=== PATIENT | female | born 1975 | race African-American/Black ===

== ENCOUNTER 2017-04-22 18:35 | Observation (INO) | payer OTHER ==
[~2017-04-22 18:35] MED LIST: CYCL7.5T33 PO; GABA100C4 PO; MECL-62 PO; MEDR4PAK PO
[2017-04-22 18:37] VITALS: BP 181/95; PULSE 96; RESP 16; TEMP 98.8; O2SAT 100
[2017-04-22 19:01] VITALS: BP 205/106; PULSE 97; RESP 16
[2017-04-22 19:04] VITALS: O2SAT 99
--- NOTE | 2017-04-22 19:05 | PD ---
HPI Chief Complaint: Neuro Symptoms/ Deficits Time Seen by Provider: 18:55 Travel History International Travel<30 days: No Contact w/Intl Traveler<30days: No Traveled to known affect area: No History of Present Illness HPI 42-year-old female sent in by [facility] for CVA workup. Patient has no significant past medical history and is not on any medications. She reports left-sided tingling/ numbness in her arm and leg. She denies weakness. She states that about a month ago she had a mechanical slip and fall and landed onto her left shoulder and since that time she has been having tingling sensation in her left arm and hand. She was started on prednisone by her primary care physician and states that it kept her up at night. She discontinue this medication about a week ago. Over the weekend she had episodes of stuttered speech and has continued numbness in her left arm and leg. She also reports feeling off balance. No chest pain or dyspnea. No fevers or chills. No visual disturbances. PFSH Past Medical History Anemia: Yes Cancer: No Cardiovascular Problems: No Diabetes: No Diminished Hearing: No Endocrine: No Gastrointestinal Disorders: No Genitourinary: No Hepatitis: No Hiatal Hernia: No Hypertension: Yes Immune Disorder: No Musculoskeletal: Yes (MUSCLE SPASMS) Neurologic: No Psychiatric: No Reproductive: Yes (TL) Respiratory: No Immunizations Current: Yes Migraines: Yes Thyroid Disease: No : 5 Para: 4 Miscarriage: 1 : 0 Past Surgical History Abdominal Surgery: No Cardiac Surgery: No Ear Surgery: No Endocrine Surgery: No Eye Surgery: No Genitourinary Surgery: No Gynecologic Surgery: Yes (CERVICAL BIOPSY, TL) Neurologic Surgery: No Oral Surgery: No Pacemaker: No Thoracic Surgery: No Social History Alcohol Use: No Tobacco Use: No Substance Use: No Allergies-Medications (Allergen,Severity, Reaction): Coded Allergies: *MDRO Multi-Drug Resistant Organism (Verified Adverse Reaction, Unknown, 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) - 03/05/06, 03/08/11, 03/20/11 Reported Meds & Prescriptions Reported Meds & Active Scripts Active Flexeril (Cyclobenzaprine HCl) 7.5 Mg Tab 7.5 Mg PO TID Meclizine (Meclizine HCl) 25 Mg Tab 25 Mg PO TID PRN Gabapentin 100 Mg Cap 100 Mg PO HS Medrol Dosepak (Methylprednisolone) 4 Mg Dspk 4 Mg PO DIRECTED Per Pharmacist direction Review of Systems Except as stated in HPI: all other systems reviewed are Neg Physical Exam Narrative GENERAL: Well-developed, well-nourished, comfortable, no apparent distress. SKIN: Focused skin assessment warm/dry. HEAD: Atraumatic. Normocephalic. EYES: Pupils equal and round. No scleral icterus. No injection or drainage. ENT: Mucous membranes pink and moist. NECK: Trachea midline. No JVD. CARDIOVASCULAR: Regular rate and rhythm. RESPIRATORY: No accessory muscle use. Clear to auscultation. Breath sounds equal bilaterally. GASTROINTESTINAL: Abdomen soft, non-tender, nondistended. Hepatic and splenic margins not palpable. MUSCULOSKELETAL: No obvious deformities. No clubbing. No cyanosis. No edema. NEUROLOGICAL: Awake and alert. No obvious cranial nerve deficits. Motor grossly within normal limits. Normal speech. No focal deficits. Normal strength in all 4 extremities. No pronator drift. PSYCHIATRIC: Appropriate mood and affect; insight and judgment normal. Data Data Last Documented VS Vital Signs Date Time Temp Pulse Resp B/P (MAP) Pulse Ox O2 Delivery O2 Flow Rate FiO2 04/22/17 20:44 90 16 158/74 (102) 100 Room Air 04/22/17 18:37 98.8 Orders Orders Electrocardiogram (04/22/17 19:01) Prothrombin Time / Inr (Pt) (04/22/17 19:01) Act Partial Throm Time (Ptt) (04/22/17 19:01) Complete Blood Count With Diff (04/22/17 19:) Comprehensive Metabolic Panel (04/22/17 19:01) Creatine Kinase (Cpk) (04/22/17 19:01) Troponin I (04/22/17 19:01) Urinalysis - C+S If Indicated (04/22/17 19:01) Ct Brain W/O Iv Contrast(Rout) (04/22/17 19:) Chest, Single Ap (04/22/17 19:01) Ecg Monitoring (04/22/17 19:01) Iv Access Insert/Monitor (04/22/17 19:) Oximetry (04/22/17 19:01) Sodium Chloride 0.9% Flush (Ns Flush) (04/22/17 19:15) Beta Hcg (Quant/Titer) (04/22/17 19:01) Ct Cerv Spine W/O Contrast (04/22/17 ) Aspirin Ec (Ecotrin Ec) (04/22/17 20:30) Urine Culture (04/22/17 19:35) Labs Laboratory Tests Test 04/22/17 19:30 04/22/17 19:35 White Blood Count 11.4 TH/MM3 Red Blood Count 3.89 MIL/MM3 Hemoglobin 11.0 GM/DL Hematocrit 33.2 % Mean Corpuscular Volume 85.2 FL Mean Corpuscular Hemoglobin 28.3 PG Mean Corpuscular Hemoglobin Concent 33.2 % Red Cell Distribution Width 15.9 % Platelet Count 383 TH/MM3 Mean Platelet Volume 7.7 FL Neutrophils (%) (Auto) 65.9 % Lymphocytes (%) (Auto) 25.8 % Monocytes (%) (Auto) 5.8 % Eosinophils (%) (Auto) 1.8 % Basophils (%) (Auto) 0.7 % Neutrophils # (Auto) 7.5 TH/MM3 Lymphocytes # (Auto) 2.9 TH/MM3 Monocytes # (Auto) 0.7 TH/MM3 Eosinophils # (Auto) 0.2 TH/MM3 Basophils # (Auto) 0.1 TH/MM3 CBC Comment DIFF FINAL Differential Comment Prothrombin Time 9.7 SEC Prothromb Time International Ratio 1.0 RATIO Activated Partial Thromboplast Time 24.3 SEC Blood Urea Nitrogen 12 MG/DL Creatinine 0.74 MG/DL Random Glucose 87 MG/DL Total Protein 8.4 GM/DL Albumin 3.4 GM/DL Calcium Level 8.5 MG/DL Alkaline Phosphatase 75 U/L Aspartate Amino Transf (AST/SGOT) 21 U/L Alanine Aminotransferase (ALT/SGPT) 20 U/L Total Bilirubin 0.2 MG/DL Sodium Level 139 MEQ/L Potassium Level 4.0 MEQ/L Chloride Level 106 MEQ/L Carbon Dioxide Level 27.0 MEQ/L Anion Gap 6 MEQ/L Estimat Glomerular Filtration Rate 104 ML/MIN Total Creatine Kinase 102 U/L Troponin I LESS THAN 0.02 NG/ML Human Chorionic Gonadotropin, Quant LESS THAN 1 MIU/ML Urine Color YELLOW Urine Turbidity CLEAR Urine pH 6.5 Urine Specific [place] 1.024 Urine Protein TRACE mg/dL Urine Glucose (UA) NEG mg/dL Urine Ketones NEG mg/dL Urine Occult Blood LARGE Urine Nitrite NEG Urine Bilirubin NEG Urine Urobilinogen LESS THAN 2.0 MG/DL Urine Leukocyte Esterase SMALL Urine RBC /hpf Urine WBC 13 /hpf Urine Squamous Epithelial Cells 3 /hpf Urine Amorphous Sediment RARE Urine Mucus FEW /lpf Microscopic Urinalysis Comment CATH-CULTURE IND MDM Medical Decision Making Medical Screen Exam Complete: Yes Emergency Medical Condition: Yes Interpretation(s) EKG: Sinus, rate 89, normal axis, normal intervals, minimal voltage for LVH, no acute ischemic abnormality Differential Diagnosis CVA, intracranial trauma, radiculopathy, metabolic abnormality, UTI Narrative Course Vital signs show heart rate 90, blood pressure 150/74, pulse ox 100% on room air , oral temp of 98.8F. CBC is unremarkable. CMP is unremarkable. Cardiac enzymes are negative. Beta hCG is negative. UA shows hematuria. The patient is currently on her menstrual period. CT head: No acute disease. CT cervical spine: CONCLUSION: 1. Reversal of the normal cervical lordosis. 2. No acute fracture or prevertebral soft tissue swelling. 3. No bony spinal canal stenosis. Chest x-ray: No acute disease. Patient was made aware of all findings. She was given a dose of aspirin. She is resting comfortably. She continues to complain of tingling sensation in her left arm and leg. There is no weakness on exam. No pronator drift. No visual changes. Patient will be admitted for further CVA workup. Case discussed with medical coding technician Dr. Mercedes. The patient will be admitted to their service under Dr. Cabrera Diagnosis Primary Impression: Neurological complaint Additional Impression: Paresthesias Admitting Information Admitting Physician Requests: Observation Denny Hall MD Apr 22, 2017 19:05
[2017-04-22] MEDS ORDERED: SODIUM CHLORIDE 0.9% FLUSH 10 ML FLUSH IVF PRN (19:15)
--- NOTE | 2017-04-22 19:30 | RADRPT ---
EXAM DATE/TIME: 04/22/2017 19:24 [facility] COMPARISON: CT BRAIN W/O CONTRAST, October 16, 2015, 1:04. INDICATIONS : Left upper and lower extremity weakness. RADIATION DOSE: 53.65 CTDIvol (mGy) MEDICAL HISTORY : Hypertension. SURGICAL HISTORY : None. ENCOUNTER: Initial ACUITY: 1 day PAIN SCALE: 0/10 LOCATION: Bilateral head TECHNIQUE: Multiple contiguous axial images were obtained of the head. Using automated exposure control and adj ustment of the mA and/or kV according to patient size, radiation dose was kept as low as reasonably a chievable to obtain optimal diagnostic quality images. DICOM format image data is available electro nically for review and comparison. FINDINGS: CEREBRUM: The ventricles are normal for age. No evidence of midline shift, mass lesion, hemorrhage or acute in farction. No extra-axial fluid collections are seen. POSTERIOR FOSSA: The cerebellum and brainstem are intact. The 4th ventricle is midline. The cerebellopontine angle i s unremarkable. EXTRACRANIAL: The visualized portion of the orbits is intact. SKULL: The calvaria is intact. No evidence of skull fracture. CONCLUSION: No acute disease. Timmy Grady MD on April 22, 2017 at 19:27 Board Certified Radiologist. This report was verified electronically.
--- NOTE | 2017-04-22 19:33 | RADRPT ---
EXAM DATE/TIME: 04/22/2017 19:16 [facility] COMPARISON: No previous studies available for comparison. INDICATIONS : Syncope. MEDICAL HISTORY : Hypertension. SURGICAL HISTORY : None. ENCOUNTER: Initial ACUITY: 1 day PAIN SCORE: 0/10 LOCATION: Bilateral chest FINDINGS: A single view of the chest demonstrates the lungs to be symmetrically aerated without evidence of mas s, infiltrate or effusion. The cardiomediastinal contours are unremarkable. Osseous structures are intact. CONCLUSION: No acute disease. Timmy Grady MD on April 22, 2017 at 19:30 Board Certified Radiologist. This report was verified electronically.
--- NOTE | 2017-04-22 19:52 | RADRPT ---
EXAM DATE/TIME: 04/22/2017 19:24 [facility] COMPARISON: No previous studies available for comparison. INDICATIONS : Left upper and lower extremity weakness. RADIATION DOSE: 46.00 CTDIvol (mGy) MEDICAL HISTORY : Hypertension. SURGICAL HISTORY : None. ENCOUNTER: Initial ACUITY: 1 day PAIN SCALE: 0/10 LOCATION: Bilateral neck TECHNIQUE: Volumetric scanning of the cervical spine was performed. Multiplanar reconstructions in the sagittal, coronal and oblique axial planes were performed. Using automated exposure control and adjustment o f the mA and/or kV according to patient size, radiation dose was kept as low as reasonably achievable to obtain optimal diagnostic quality images. DICOM format image data is available electronically f or review and comparison. FINDINGS: VERTEBRAE: Normal vertebral body height. ALIGNMENT: There is reversal of the normal cervical lordosis. No evidence of subluxation. C2-C3: The bony spinal canal is normal in size. No evidence of disc bulge or herniation. The neural forami na are bilaterally patent. C3-C4: The bony spinal canal is normal in size. No evidence of disc bulge or herniation. The neural forami na are bilaterally patent. C4-C5: The bony spinal canal is normal in size. No evidence of disc bulge or herniation. The neural forami na are bilaterally patent. C5-C6: The bony spinal canal is normal in size. No evidence of disc bulge or herniation. The neural forami na are bilaterally patent. C6-C7: The bony spinal canal is normal in size. No evidence of disc bulge or herniation. The neural forami na are bilaterally patent. C7-T1: The bony spinal canal is normal in size. No evidence of disc bulge or herniation. The neural forami na are bilaterally patent. CONCLUSION: 1. Reversal of the normal cervical lordosis. 2. No acute fracture or prevertebral soft tissue swelling. 3. No bony spinal canal stenosis. Timmy Grady MD on April 22, 2017 at 19:47 Board Certified Radiologist. This report was verified electronically.
[2017-04-22 20:20] LABS: AUTOMATED NEUTROPHIL # 7.5 TH/MM3 (1.8-7.7); BASOPHIL # 0.1 TH/MM3 (0-0.2); BASOPHIL % 0.7 % (0.0-2.0); EOSINOPHIL # 0.2 TH/MM3 (0-0.4); EOSINOPHIL % 1.8 % (0.0-4.0); HEMATOCRIT 33.2 % (35.0-46.0); HEMO FLAGS DIFF FINAL; LYMPH % 25.8 % (9.0-44.0); LYMPHOCYTE # 2.9 TH/MM3 (1.0-4.8); MEAN CELL VOLUME 85.2 FL (80.0-100.0); MEAN CORPUSCULAR HEMOGLOBIN 28.3 PG (27.0-34.0); MEAN CORPUSCULAR HGB CONC 33.2 % (32.0-36.0); MONO % 5.8 % (0.0-8.0); NEUT % 65.9 % (16.0-70.0); PLATELET COUNT 383 TH/MM3 (150-450); RED BLOOD COUNT 3.89 MIL/MM3 (4.00-5.30); RED CELL DISTRIBUTION WIDTH 15.9 % (11.6-17.2); WHITE BLOOD COUNT 11.4 TH/MM3 (4.0-11.0)
[2017-04-22 20:23] LABS: BLOOD, URINE LARGE (NEG); GLUCOSE,URINE NEG (NEG); KETONE, URINE NEG (NEG); MUCUS URINE FEW /lpf (OCC); NITRITE,URINE NEG (NEG); PH, URINE 6.5 (5.0-8.5); SQUAMOUS EPITHELIAL CELL URINE 3 /hpf (0-5); URINE COLOR YELLOW (YELLW/STRAW)
[2017-04-22 20:29] LABS: COMMENT (UR) CATH-CULTURE IND; CULTURE IF INDICATED CATH CULTURE IND
[2017-04-22] MEDS ORDERED: ASPIRIN EC 325 MG TABEC PO ONE (20:30)
[2017-04-22 20:35] LABS: APTT (PATIENT) 24.3 SEC (24.3-30.1); PROTHROMBIN TIME - PATIENT 9.7 SEC (9.8-11.6)
[2017-04-22 20:44] VITALS: BP 158/74; PULSE 90; RESP 16; O2SAT 100
[2017-04-22 20:50] LABS: ALT (GPT) 20 U/L (10-53)
[2017-04-22 20:55] LABS: ALKALINE PHOSPHATASE 75 U/L (45-117); ANION GAP 6 MEQ/L (5-15); AST (GOT) 21 U/L (15-37); BETA HCG QUANT LESS THAN 1 MIU/ML (0-5); BLOOD UREA NITROGEN 12 MG/DL (7-18); CHLORIDE 106 MEQ/L (98-107); CREATINE KINASE 102 U/L (26-192); GLOMERULAR FILTRATION RATE 104 ML/MIN (>89); SODIUM (NA) 139 MEQ/L (136-145); TOTAL BILIRUBIN ADULT 0.2 MG/DL (0.2-1.0)
[2017-04-22] MEDS ORDERED: IOHEXOL 350 MG/ML 10 ML VIAL (for RAD DIAG) IVCONTRAST ONE (21:14)
--- NOTE | 2017-04-22 21:45 | HHI.HP ---
[facility] Service Family Medicine Primary Care Physician Cris Kent , R3 MD Gigi Admission Diagnosis left arm and leg paresthesias Diagnoses: International Travel<30 Days: No Contact w/Intl Traveler<30days: No Known Affected Area: No History of Present Illness Mrs. Otto is a 42 y/o F presenting to the ED for L sided paresthesia and pain. Patient states that approximately one month ago she fell onto her left shoulder while trying to catch her balance. She states that initially her left index finger started having paresthesia has now progressed to all 4 fingers except for her fifth digit chronically. Currently she is experiencing paresthesia throughout the entire left side of her body. She was given an unknown anti-inflammatory that "worked pretty good" over , however it made her "jittery" and was therefore losing sleep. She self discontinued the medication. Over the last weekend she started to feel unbalanced while walking and noticed a slight stutter when talking. She was seen at the [facility] acute care clinic today and was discharged home on a "couple of medications." However, she was unable to obtain these medications from pharmacy and was called by her physician to come immediately to the ED for evaluation. She describes the paresthesia as pins and needles throughout the entire left side of her body that is accompanied with intermittent "lightning/electricity strikes" that started at the left side of her head and shoot all the way down to her left foot. Otherwise she has no complaints and denies any headaches, blurry vision, shortness of breath, chest pain, NVD, abdominal pain, or calf tenderness. Review of Systems Constitutional: COMPLAINS OF: Dizziness, DENIES: Fever, Chills Endocrine: DENIES: Abnorml menstrual pattern Eyes: DENIES: Blurred vision Ears, nose, mouth, throat: COMPLAINS OF: Tinnitus (Baseline ), DENIES: Throat pain Respiratory: DENIES: Cough, Shortness of breath Cardiovascular: DENIES: Chest pain, Syncope Gastrointestinal: COMPLAINS OF: Nausea (After ibuprofen today on empty stomach ), DENIES: Abdominal pain, Diarrhea, Vomiting Genitourinary: DENIES: Hematuria, Dysuria Musculoskeletal: COMPLAINS OF: Muscle aches, DENIES: Joint pain, Back pain Integumentary: DENIES: Rash Hematologic/lymphatic: DENIES: Lymphadenopathy Neurologic: DENIES: Headache Psychiatric: DENIES: Mood changes Past Family Social History Past Medical History Past Medical History Chronic migraines Muscle spasms Abnormal uterine bleeding (EMB January 2015 negative for malignancy) Hypertension [employer] History (1 miscarriage) x 4 Age at menstruation: 12 History of abnormal paps and HR-HPV Past Surgical History Surgical History Tubal ligation Endometrial biopsy (January 2015) Lipoma removal from back Allergies: Coded Allergies: *MDRO Multi-Drug Resistant Organism (Verified Adverse Reaction, Unknown, 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) - 03/05/06, 03/08/11, 03/20/11 Family History Family History Mother: alive, HTN Father: alive, HTN, HLD, HIRAM Maternal grandmother: in 40s from breast cancer All women on maternal side had hysterectomy Brother: alive, HTN, HIRAM Children are healthy (22, 20, 8, 4 as of January 2015) Social History Social History Lives with two of four children Works in [employer] at [employer] EtOH: occasional (once every 2-3 months), no history of abuse Tobacco: recently started back smoking 2 black and milds per day, prior smoked about 5 cigars daily x 10 years Illicit drugs: Smokes marijuana daily, 1 blunt per day, otherwise no reported history Health Maintenance Pap: February 2014, ASCUS with HR-HPV --> colpo was negative; January 2015 ASCUS and +HR-HPV, January 2015 ECC and EMB negative for malignancy Flu shots: January 2015 Lipids: June [address] Montano (rheumatology) Physical Exam Vital Signs Vital Signs Date Time Temp Pulse Resp B/P (MAP) Pulse Ox O2 Delivery O2 Flow Rate FiO2 04/22/17 20:44 90 16 158/74 (102) 100 Room Air 04/22/17 19:04 99 Room Air 04/22/17 19:01 97 16 205/106 (139) 04/22/17 18:58 16 04/22/17 18:37 98.8 96 16 181/95 (123) 100 Room Air Physical Exam GENERAL: Well-nourished, well-developed female patient lying on bed in no acute distress. SKIN: Warm and dry. No rash. HEENT: Atraumatic, normocephalic with EOMI. PERRLA. No rhinorrhea. Oropharynx clear. No LAD, JVD, or thyroid abnormality appreciated. CARDIOVASCULAR: Regular rate and rhythm without obvious murmurs, gallops, or rubs. 2+ pulses in all 4 extremities. RESPIRATORY: Clear to auscultation bilaterally with no CRW. No increased work of breathing. GASTROINTESTINAL: Abdomen soft, nontender with positive bowel sounds. No hepatosplenomegaly appreciated. MUSCULOSKELETAL: No cyanosis or edema. Strength grossly WNL. BACK: Nontender without obvious deformity. No CVA tenderness. NEURO/PSYCH: Afocal. Awake, alert, and oriented x3. Cranial nerves II through X intact. Extremities reflexes 2+ throughout 4 extremities. Gross strength and sensation intact without deficits and all 4 extremities. Patient tender to palpation along any part of her left side of the body. Normal speech and judgment. Laboratory Laboratory Tests Test 04/22/17 19:30 04/22/17 19:35 White Blood Count 11.4 Red Blood Count 3.89 Hemoglobin 11.0 Hematocrit 33.2 Mean Corpuscular Volume 85.2 Mean Corpuscular Hemoglobin 28.3 Mean Corpuscular Hemoglobin Concent 33.2 Red Cell Distribution Width 15.9 Platelet Count 383 Mean Platelet Volume 7.7 Neutrophils (%) (Auto) 65.9 Lymphocytes (%) (Auto) 25.8 Monocytes (%) (Auto) 5.8 Eosinophils (%) (Auto) 1.8 Basophils (%) (Auto) 0.7 Neutrophils # (Auto) 7.5 Lymphocytes # (Auto) 2.9 Monocytes # (Auto) 0.7 Eosinophils # (Auto) 0.2 Basophils # (Auto) 0.1 CBC Comment DIFF FINAL Differential Comment Prothrombin Time 9.7 Prothromb Time International Ratio 1.0 Activated Partial Thromboplast Time 24.3 Blood Urea Nitrogen 12 Creatinine 0.74 Random Glucose 87 Total Protein 8.4 Albumin 3.4 Calcium Level 8.5 Alkaline Phosphatase 75 Aspartate Amino Transf (AST/SGOT) 21 Alanine Aminotransferase (ALT/SGPT) 20 Total Bilirubin 0.2 Sodium Level 139 Potassium Level 4.0 Chloride Level 106 Carbon Dioxide Level 27.0 Anion Gap 6 Estimat Glomerular Filtration Rate 104 Total Creatine Kinase 102 Troponin I LESS THAN 0.02 Human Chorionic Gonadotropin, Quant LESS THAN 1 Urine Color YELLOW Urine Turbidity CLEAR Urine pH 6.5 Urine Specific [place] 1.024 Urine Protein TRACE Urine Glucose (UA) NEG Urine Ketones NEG Urine Occult Blood LARGE Urine Nitrite NEG Urine Bilirubin NEG Urine Urobilinogen LESS THAN 2.0 Urine Leukocyte Esterase SMALL Urine RBC Urine WBC 13 Urine Squamous Epithelial Cells 3 Urine Amorphous Sediment RARE Urine Mucus FEW Microscopic Urinalysis Comment CATH-CULTURE IND Date/Time Source Procedure Growth Status 04/22/17 19:35 Urine Catheterized Urine Urine Culture Pending Received Result Diagram: 04/22/17192904/22/171929 [place]ini VTE Risk Assessment Caprini VTE Risk Assessment: Mod/High Risk (score >= 2) Caprini Risk Assessment Model Point Value = 1 Point Value = 2 Point Value = 3 Point Value = 5 Age 41-60 Minor surgery BMI > 25 kg/m2 Swollen legs Varicose veins or History of unexplained or recurrent spontaneous Oral contraceptives or hormone replacement Sepsis (< 1 month) Serious lung disease, including pneumonia (< 1 month) Abnormal pulmonary function Acute myocardial infarction Congestive heart failure (< 1 month) History of inflammatory bowel disease Medical patient at bed rest Age 61-74 Arthroscopic surgery Major open surgery (> 45 min) Laparoscopic surgery (> 45 min) Malignancy Confined to bed (> 72 hours) Immobilizing plaster cast Central venous access Age >= 75 History of VTE Family history of VTE Factor V Leiden Prothrombin [id number] Lupus anticoagulant Anticardiolipin antibodies Elevated serum homocysteine Heparin-induced thrombocytopenia Other congenital or acquired thrombophilia Stroke (< 1 month) Elective arthroplasty Hip, pelvis, or leg fracture Acute spinal cord injury (< 1 month) Prophylaxis Regimen Total Risk Factor Score Risk Level Prophylaxis Regimen 0-1 Low Early ambulation 2 Moderate Order ONE of the following: *Sequential Compression Device (SCD) *Heparin 5000 units SQ BID 3-4 Higher Order ONE of the following medications: *Heparin 5000 units SQ TID *Enoxaparin/Lovenox 40 mg SQ daily (WT < 150 kg, CrCl > 30 mL/min) *Enoxaparin/Lovenox 30 mg SQ daily (WT < 150 kg, CrCl > 10-29 mL/min) *Enoxaparin/Lovenox 30 mg SQ BID (WT < 150 kg, CrCl > 30 mL/min) AND/OR *Sequential Compression Device (SCD) 5 or more Highest Order ONE of the following medications: *Heparin 5000 units SQ TID (Preferred with Epidurals) *Enoxaparin/Lovenox 40 mg SQ daily (WT < 150 kg, CrCl > 30 mL/min) *Enoxaparin/Lovenox 30 mg SQ daily (WT < 150 kg, CrCl > 10-29 mL/min) *Enoxaparin/Lovenox 30 mg SQ BID (WT < 150 kg, CrCl > 30 mL/min) AND *Sequential Compression Device (SCD) Assessment and Plan Assessment and Plan Mrs. Otto is a 42 y/o F presenting to the ED for L sided paresthesia and pain admitted for evaluation of possible TIA Code Status Full code Discussed Condition With Dr. Hall Problem List: (1) TIA (transient ischemic attack) ICD Codes: G45.9 - Transient cerebral ischemic attack, unspecified Status: Acute Plan: Patient admitted to rule out TIA versus CVA Imaging/studies/orders: -Head CT: No acute disease -Cervical spine CT: Reversal of the normal cervical lordosis. No acute fracture or prevertebral soft tissue swelling. No bony spinal canal stenosis. -Carotid ultrasounds ordered -Head MRI and MRA ordered -Cervical spine MRI ordered -Echocardiogram ordered -NIH stroke scale protocol ordered -OT/PT consulted -Neurology consulted, appreciate recommendations Medications: -Aspirin daily -Continue gabapentin 100 mg nightly -Continue Flexeril 3 times a day for muscle spasms (2) Nutrition, metabolism, and development symptoms ICD Codes: R63.8 - Other symptoms and signs concerning food and fluid intake Status: Acute Plan: Diet: Nothing by mouth until swallow evaluation Fluids: Normal saline at 70 mL per hour Electrolytes: Within normal limits (3) Medical contraindication to deep vein thrombosis (DVT) prophylaxis ICD Codes: Z53.09 - Procedure and treatment not carried out because of other contraindication Status: Acute Plan: Medical DVT prophylaxis held until acute process ruled out SCD/TEDs Forest Mecredes MD R2 Apr 22, 2017 21:45
[2017-04-22] MEDS ORDERED: SODIUM CHLORIDE 0.9% FLUSH 10 ML FLUSH IV FLUSH PRN (22:15)
[2017-04-22] MEDS ORDERED: GLUCAGON 1 MG/ML VIAL OTHER PRN (22:15)
[2017-04-22] MEDS ORDERED: DEXTROSE 50% IN WATER 50 ML VIAL(D50) IV PUSH PRN (22:15)
[2017-04-22 22:30] VITALS: O2SAT 100
[2017-04-22] MEDS: SODIUM CHLOR 0.9% 1000 ML INJ 1,000 ML IV SCH (22:38)
[2017-04-22 23:58] VITALS: BP 167/74; PULSE 86; RESP 16; O2SAT 98
[2017-04-23] VITALS (11 sets, daily range): BP systolic 125–160; BP diastolic 67–86; PULSE 72–98; RESP 16–21; TEMP 97.8–98.7; O2SAT 98–100
--- NOTE | 2017-04-23 00:02 | RADRPT ---
EXAM DATE/TIME: 04/22/2017 23:19 [facility] COMPARISON: No previous studies available for comparison. INDICATIONS : Cerebrovascular accident. Left upper and lower extremity weakness. MEDICAL HISTORY : . Hypertension. Migraines. SURGICAL HISTORY : Tubal ligation. Cervical biopsy. ENCOUNTER: Initial ACUITY: 1 day PAIN SCORE: 0/10 LOCATION: Bilateral neck PEAK SYSTOLIC VELOCITIES (cm/sec): ICA/CCA RATIO: Right: 0.7 Left: 1.1 ICA: Right: 92 Left: 122 CCA: Right: 128 Left: 112 ECA: Right: 84 Left: 153 VERTEBRAL: Right: 56 antegrade Left: 74 antegrade Elevated flow velocities and ICA/CCA ratios have been found to correlate with increased degrees of vessel stenosis, calculated as percentage of diameter relative to a normal segment of distal ICA/CCA FINDINGS: RIGHT CAROTID: There is an apparent small dissection in the proximal to mid right common carotid artery. There is apparent normal color flow. LEFT CAROTID: No significant stenosis is visualized. The waveforms are within normal limits. VERTEBRAL ARTERIES: Antegrade flow is seen in both vertebral arteries. MISCELLANEOUS: None. CONCLUSION: Apparent small dissection in the mid right common carotid artery. Color flow was unre markable. There is no evidence of stenosis or elevated velocities. Darion Loving MD on April 22, 2017 at 23:56 Board Certified Radiologist. This report was verified electronically.
[2017-04-23 05:42] LABS: AUTOMATED NEUTROPHIL # 4.7 TH/MM3 (1.8-7.7); BASOPHIL # 0.1 TH/MM3 (0-0.2); BASOPHIL % 1.1 % (0.0-2.0); EOSINOPHIL # 0.2 TH/MM3 (0-0.4); EOSINOPHIL % 2.4 % (0.0-4.0); HEMATOCRIT 29.6 % (35.0-46.0); HEMO FLAGS DIFF FINAL; LYMPHOCYTE # 2.7 TH/MM3 (1.0-4.8); MEAN CELL VOLUME 84.6 FL (80.0-100.0); MEAN CORPUSCULAR HEMOGLOBIN 28.1 PG (27.0-34.0); MEAN CORPUSCULAR HGB CONC 33.2 % (32.0-36.0); MONO % 7.3 % (0.0-8.0); NEUT % 57.2 % (16.0-70.0); PLATELET COUNT 319 TH/MM3 (150-450); RED CELL DISTRIBUTION WIDTH 15.7 % (11.6-17.2); WHITE BLOOD COUNT 8.3 TH/MM3 (4.0-11.0)
[2017-04-23 05:45] LABS: PROTHROMBIN TIME - PATIENT 9.8 SEC (9.8-11.6)
[2017-04-23 06:04] LABS: ANION GAP 6 MEQ/L (5-15); BICARBONATE 25.3 MEQ/L (21.0-32.0); BLOOD UREA NITROGEN 9 MG/DL (7-18); CHLORIDE 110 MEQ/L (98-107); GLOMERULAR FILTRATION RATE 150 ML/MIN (>89); POTASSIUM 4.2 MEQ/L (3.5-5.1); SODIUM (NA) 141 MEQ/L (136-145)
[2017-04-23 06:08] LABS: HDL CHOLESTEROL 46.5 MG/DL (40.0-60.0); LDL CHOLESTEROL 115 MG/DL (0-99)
[2017-04-23] MEDS ORDERED: PILL SPLITTER OTHER PRN (07:30)
[2017-04-23] MEDS: INSULIN ASPART SUPPLEMENTAL SCALE SQ SCH ×4 (08:00→21:00)
[2017-04-23] MEDS: SODIUM CHLORIDE 0.9% FLUSH 10 ML FLUSH IV FLUSH SCH ×2 (09:00→21:00)
[2017-04-23] MEDS: ASPIRIN 81 MG CHEW TAB PO SCH (09:15)
[2017-04-23] MEDS: CYCLOBENZAPRINE HCL 10 MG TAB PO SCH ×3 (09:15→17:03)
--- NOTE | 2017-04-23 09:22 | HHI.FPPN ---
Subjective Remarks Patient seen and examined this morning. Temperature 98.4, pulse 76, respiratory rate 16, blood pressure 125/81, pulse ox 100% on room air. She is just returned from the MRI were MRI of the brain and spine and MRA were performed, results are still pending. Her carotid ultrasound showed a right carotid dissection and vascular surgery has been consulted. Explained the result of the ultrasound and that we are awaiting recommendations. Neurology has also been consulted and recommendations are pending. She understands the current plan of care, and has no complaints at this time. She reports that she is still feeling the tingling in her left hand, and if she tries to get out of the bed and feels like she is stumbling to the right. (Garcia Harrington MD, R3) Objective Vitals Vital Signs Date Time Temp Pulse Resp B/P (MAP) Pulse Ox O2 Delivery O2 Flow Rate FiO2 04/23/17 04:15 77 04/23/17 03:08 98.4 76 16 125/81 (96) 100 04/23/17 02:30 83 04/23/17 01:24 04/23/17 00:39 79 16 143/67 (92) 04/22/17 23:58 86 16 167/74 (105) 98 Room Air 04/22/17 22:30 100 04/22/17 20:44 90 16 158/74 (102) 100 Room Air 04/22/17 19:04 99 Room Air 04/22/17 19:01 97 16 205/106 (139) 04/22/17 18:58 16 04/22/17 18:37 98.8 96 16 181/95 (123) 100 Room Air (Garcia Harrington MD, R3) Result Diagram: 04/23/179 04/23/179 Imaging Last Impressions Head CT 04/22/171900 Signed Impressions: Service Date/Time: Saturday, April 22, 2017 19:24 - CONCLUSION: No acute disease. Timmy Grady MD Chest X-Ray 04/22/171900 Signed Impressions: Service Date/Time: Saturday, April 22, 2017 19:16 - CONCLUSION: No acute disease. Timmy Grady MD Cervical Spine CT 04/22/17 0000 Signed Impressions: Service Date/Time: Saturday, April 22, 2017 19:24 - CONCLUSION: 1. Reversal of the normal cervical lordosis. 2. No acute fracture or prevertebral soft tissue swelling. 3. No bony spinal canal stenosis. Timmy Grady MD Carotid Artery Ultrasound 04/22/17 0000 Signed Impressions: Service Date/Time: Saturday, April 22, 2017 23:19 - CONCLUSION: Apparent small dissection in the mid right common carotid artery. Color flow was unremarkable. There is no evidence of stenosis or elevated velocities. Darion Loving MD Objective Remarks GENERAL: Well-nourished, well-developed female patient lying on bed in no acute distress. SKIN: Warm and dry. No rash. HEENT: Atraumatic, normocephalic with EOMI. PERRLA. No rhinorrhea. Oropharynx clear. No LAD, JVD, or thyroid abnormality appreciated. CARDIOVASCULAR: Regular rate and rhythm without obvious murmurs, gallops, or rubs. 2+ pulses in all 4 extremities. RESPIRATORY: Clear to auscultation bilaterally with no CRW. No increased work of breathing. GASTROINTESTINAL: Abdomen soft, nontender with positive bowel sounds. No hepatosplenomegaly appreciated. MUSCULOSKELETAL: No cyanosis or edema. Strength grossly WNL. BACK: Nontender without obvious deformity. No CVA tenderness. NEURO/PSYCH: Afocal. Awake, alert, and oriented x3. Cranial nerves II through X intact. Extremities reflexes 2+ throughout 4 extremities. Gross strength and sensation intact without deficits and all 4 extremities. Patient tender to palpation along any part of her left side of the body. Normal speech and judgment. Medications and IVs Current Medications Medications (Trade) Dose Ordered Sig/Jairo Route Start Time Stop Time Status Last Admin (NS Flush) 2 ml BID IV FLUSH 04/23/17 09:00 (NS Flush) 2 ml UNSCH PRN IV FLUSH 04/22/17 22:15 Sodium Chloride 1,000 ml @ 70 mls/hr [id number] IV 04/22/17 22:08 04/22/17 22:38 (Aspirin Chew) 81 mg DAILY PO 04/23/17 09:00 (NovoLOG SUPPLEMENTAL SCALE) 1 ACHS SQ 04/23/17 08:00 (D50w (Vial) Inj) 50 ml UNSCH PRN IV PUSH 04/22/17 22:15 (Glucagon Inj) 1 mg UNSCH PRN OTHER 04/22/17 22:15 (Neurontin) 100 mg HS PO 04/23/17 21:00 (Flexeril) 7.5 mg TID PO 04/23/17 09:00 (Pill Splitter) 1 ea UNSCH PRN OTHER 04/23/17 07:30 (Garcia Harrington MD, R3) A/P Assessment and Plan Mrs. Otto is a 42 y/o F presenting to the ED for L sided paresthesia and pain admitted for evaluation of possible TIA Discharge Planning Pending recommendations by neurology and vascular surgery, discharged plans uncertain at this time (Garcia Harrington MD, R3) Attending Attestation Patient seen and examined. Case reviewed and discussed with the resident team. Agree with plan of care as discussed with me and documented in the resident note. she was comfortable in bed. fortunately she has had no CVA. appreciate help of Neurology and Neurosurgery. (Cassie Garza MD) Problem List: (1) TIA (transient ischemic attack) ICD Codes: G45.9 - Transient cerebral ischemic attack, unspecified Status: Acute Plan: Patient admitted to rule out TIA versus CVA Imaging/studies/orders: -Head CT: No acute disease -Cervical spine CT: Reversal of the normal cervical lordosis. No acute fracture or prevertebral soft tissue swelling. No bony spinal canal stenosis. -Carotid ultrasounds: Right carotid dissection -Head MRI and MRA ordered -Cervical spine MRI ordered -Echocardiogram ordered -NIH stroke scale protocol ordered -OT/PT consulted -Neurology consulted, appreciate recommendations Medications: -Aspirin daily -Continue gabapentin 100 mg nightly -Continue Flexeril 3 times a day for muscle spasms (2) Carotid artery dissection ICD Codes: I77.71 - Dissection of carotid artery Status: Resolved Plan: With TIA workup carotid ultrasound showed a small dissection in the mid right common carotid artery. Currently patient is hemodynamically stable * Vascular surgery consulted, recommendations appreciated (3) Nutrition, metabolism, and development symptoms ICD Codes: R63.8 - Other symptoms and signs concerning food and fluid intake Status: Acute Plan: Diet: Nothing by mouth until swallow evaluation Fluids: Normal saline at 70 mL per hour Electrolytes: Within normal limits (4) Medical contraindication to deep vein thrombosis (DVT) prophylaxis ICD Codes: Z53.09 - Procedure and treatment not carried out because of other contraindication Status: Acute Plan: Medical DVT prophylaxis held until acute process ruled out SCD/TEDs (Garcia Harrington MD, R3) Garcia Harrington MD, R3 Apr 23, 2017 09:22 Cassie Garza MD Apr 25, 2017 12:25
--- NOTE | 2017-04-23 09:45 | RADRPT ---
EXAM DATE/TIME: 04/23/2017 08:13 [facility] COMPARISON: No previous studies available for comparison. INDICATIONS : Radiculopathy. Left sided weakness. MEDICAL HISTORY : Hypertension. SURGICAL HISTORY : Tubal ligation. ENCOUNTER: Initial ACUITY: 2 day PAIN SCORE: 0/10 LOCATION: neck TECHNIQUE: Multiplanar, multisequence MRI examination of the cervical spine was performed. FINDINGS: VERTEBRAE: Normal vertebral body height. Homogeneous marrow signal. ALIGNMENT: No evidence of subluxation. CORD: Normal configuration and signal. POST FOSSA: The cerebellar tonsils are normal in position. C2-C3: The thecal sac has a normal configuration. There is no evidence of disc herniation or spinal canal s tenosis. The neural foramina are patent bilaterally. C3-C4: The thecal sac has a normal configuration. There is no evidence of disc herniation or spinal canal s tenosis. The neural foramina are patent bilaterally. C4-C5: The thecal sac has a normal configuration. There is no evidence of disc herniation or spinal canal s tenosis. The neural foramina are patent bilaterally. C5-C6: A moderate sized central disc true lesion abutting and effacing the anterior surface of the spinal co rd is noted. Neuroforamina are patent without significant encroachment. C6-C7: The thecal sac has a normal configuration. There is no evidence of disc herniation or spinal canal s tenosis. The neural foramina are patent bilaterally. C7-T1: The thecal sac has a normal configuration. There is no evidence of disc herniation or spinal canal s tenosis. The neural foramina are patent bilaterally. CONCLUSION: 1. Moderate-sized central disc protrusion at C5-6 abutting and mildly effacing the spinal cord. 2. Otherwise normal evaluation of the cervical spine. Louis Fernandez MD on April 23, 2017 at 9:40 Board Certified Radiologist. This report was verified electronically.
--- NOTE | 2017-04-23 09:50 | RADRPT ---
EXAM DATE/TIME: 04/23/2017 08:13 [facility] COMPARISON: No previous studies available for comparison. INDICATIONS : Left sided weakness. MEDICAL HISTORY : Hypertension. SURGICAL HISTORY : Tubal ligation. ENCOUNTER: Initial ACUITY: 2 day PAIN SCORE: 0/10 LOCATION: Head Please note a normal MRA of the brain does not entirely exclude the possibility of a small aneurysm, nor the possibility of distal intracranial vessel disease. TECHNIQUE: 3D time of flight MRA was performed. Source images, multiplanar STS MIP, and 3D volume MIP reconstru ctions were reviewed. FINDINGS: There is excellent visualization of the major intracranial arteries out to the second-order branch ve ssels. There is no evidence for aneurysm, vessel truncation or stenosis, and no evidence for vascula r malformation. CONCLUSION: Normal MRA; no evidence of stenosis, luminal irregularity, aneurysm, AVM or vascular displacement. Louis Fernandez MD on April 23, 2017 at 9:45 Board Certified Radiologist. This report was verified electronically.
--- NOTE | 2017-04-23 09:52 | RADRPT ---
EXAM DATE/TIME: 04/23/2017 08:13 [facility] COMPARISON: No previous studies available for comparison. INDICATIONS : Left sided weakness. MEDICAL HISTORY : Hypertension. SURGICAL HISTORY : Tubal ligation. ENCOUNTER: Initial ACUITY: 2 day PAIN SCORE: 0/10 LOCATION: brain TECHNIQUE: Multiplanar, multisequence MRI of the brain was performed without contrast. FINDINGS: CEREBRUM: The ventricles are normal for age. No evidence of midline shift, mass lesion, hemorrhage or acute in farction. No extraaxial fluid collections are seen. The pituitary gland and suprasellar cistern are normal in configuration. WHITE MATTER: No significant signal abnormalities are seen in the white matter. POSTERIOR FOSSA: The cerebellum and brainstem are intact. The 4th ventricle is midline. The cerebellopontine angle is unremarkable. The cerebellar tonsils are normal in position. DIFFUSION IMAGING: No focal areas of restricted diffusion are seen. No evidence of acute infarction. EXTRACRANIAL: The visualized portions of the orbits and paranasal sinuses are unremarkable. CONCLUSION: Normal examination. Louis Fernandez MD on April 23, 2017 at 9:48 Board Certified Radiologist. This report was verified electronically.
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
[2017-04-23] MEDS: SODIUM CHLOR 0.9% 1000 ML INJ 1,000 ML IV SCH (12:08)
--- NOTE | 2017-04-23 14:38 | EKG ---
Date Performed: 04/22/2017 Time Performed: 19:33:34 PTAGE: 42 years EKG: Sinus rhythm MINIMAL VOLTAGE CRITERIA FOR LVH, CONSIDER NORMAL VARIANT NONSPECIFIC T-WAVE ABNORMALITY BORDERLINE ECG Compared to prior tracing no significant change PREVIOUS TRACING : 11/18/2012 19.05 DOCTOR: Marcelina Donato Interpretating Date/Time 04/23/2017 14:32:46
[2017-04-23 15:45] LABS: HEMOGLOBIN A1a 0.9 %; HEMOGLOBIN A1b 1.3 %; HEMOGLOBIN Ao 86.2 %; HEMOGLOBIN LA1C 1.8 %; HEMOGLOBIN P3 3.6 %
--- NOTE | 2017-04-23 16:05 | MB ---
cc: MAURICIO BROOKS M.D. DATE OF CONSULTATION 04/23/2017 REASON FOR CONSULTATION She is a 42-year-old woman with history of left-sided paresthesias. HISTORY OF THE PRESENT ILLNESS She describes that she has been having symptoms for a few weeks. She is not giving me a very detailed history. Initially she described a tingling that started in the left index finger, spreading to the other fingers and sparing the fifth finger. Then she described some pain starting on the left side of her neck down to her arm and leg and even reaching the toes. She was not really able to differentiate between the pain and the tingling in the hand. No apparent weakness. There is a description in the chart of some stuttering and word-finding difficulty as well. IMAGING She had a number of studies and an MRI of the cervical spine was reviewed. There is a disk herniation C5-C6 which is central and to the right, certainly not obviously causing her symptoms. An MRI brain was normal and MRA head was normal but carotid ultrasound showed a small dissection area on the right mid common carotid artery. No evidence of stenosis. LABORATORY DATA Her lab work is all reviewed. Chemistry is essentially unremarkable but the LDL is elevated to 115. Urine wbc's 13 suggesting urinary tract infection. MEDICATIONS The patient does not take any medications on a regular basis. PAST MEDICAL HISTORY No history of stroke, TIAs, but there is some history of occasional migraines. NEUROLOGIC: EXAMINATION The neurologic exam was this quite benign. She was alert, oriented. There is no facial weakness. Speech and language normal. Pupils equal, reactive and disks benign. She has good strength throughout. [id number] testing is normal. Reflexes 1-2+ throughout, plantar responses flexor. I did not ambulate the patient. ASSESSMENT Intermittent left-sided sensory symptoms that she at times described basically as tingling in the left hand but also admitted some pain left side of her neck, arm and leg and perhaps some paresthesias. There is questionable small dissection on the right common carotid artery. She has been seen by vascular surgery and a CT angio has been requested but not completed yet. Imaging studies otherwise so far benign. Nothing to suggest a demyelinating disorder. If this is a true dissection then will need to consider anticoagulation. Otherwise, would treat her with aspirin and statin. As outpatient, consider an EMG as the hand symptoms suggest the possibility of carpal tunnel as well. Thank you for asking us to assist in her care. MD MAGALIE Mejia/KK /2:25 PM /3:34 PM
--- NOTE | 2017-04-23 16:47 | ECHRPT ---
Indication: CVA/TIA CONCLUSIONS The left ventricular systolic function is normal with an estimated ejection fraction in the range of 60-65%. Doppler parameters are consistent with impaired left ventricular relaxtion (grade 1 diastolic dysfun ction). Trace mitral valve regurgitation. There is trace tricuspid valve regurgitation. BP: 125 / 81 HR: 96 Rhythm: MEASUREMENTS (Male / Female) Normal Values Technical Quality:Good 2D ECHO LV Diastolic Diameter PLAX 4.7 cm 4.2 - 5.9 / 3.9 - 5.3 cm LV Systolic Diameter PLAX 3.2 cm IVS Diastolic Thickness 0.9 cm 0.6 - 1.0 / 0.6 - 0.9 cm LVPW Diastolic Thickness 0.9 cm 0.6 - 1.0 / 0.6 - 0.9 cm LV Relative Wall Thickness 0.4 LA Systolic Diameter LX 3.4 cm 3.0 - 4.0 / 2.7 - 3.8 cm M-MODE Aortic Root Diameter MM 3.2 cm AV Cusp Separation MM 1.9 cm DOPPLER Mitral E Point Velocity 87.1 cm/s Mitral A Point Velocity 100.0 cm/s Mitral E to A Ratio 0.9 TR Peak Velocity 309.0 cm/s TR Peak Gradient 38.2 mmHg Right Atrial Pressure 5.0 mmHg Pulmonary Artery Systolic Pressu 43.2 mmHg Right Ventricular Systolic Press 43.2 mmHg FINDINGS LEFT VENTRICLE Normal left ventricular size. Wall thickness is normal. The left ventricular systolic function is normal with an estimated ejection fraction in the range of 60-65%. Doppler parameters are consistent with impaired left ventricular relaxtion (grade 1 diastolic dysfun ction). RIGHT VENTRICLE Normal right ventricular size and systolic function. LEFT ATRIUM The left atrial size is normal. RIGHT ATRIUM The right atrial size is normal. ATRIAL SEPTUM Normal atrial septal thickness. AORTA The aortic root and proximal ascending aorta are normal in size on limited imaging. MITRAL VALVE Structurally normal mitral valve. No mitral valve stenosis. Trace mitral valve regurgitation. AORTIC VALVE Probable trileaflet aortic valve. No aortic valve stenosis or regurgitation. TRICUSPID VALVE Structurally normal tricuspid valve. No tricuspid valve stenosis. There is trace tricuspid valve regurgitation. PULMONARY VALVE No pulmonary valve regurgitation or stenosis. VESSELS The inferior vena cava is normal in size. PERICARDIUM No pericardial effusion. Carlos Strauss DO (Electronically Signed) Final Date:23 April 2017 16:46
[2017-04-23 17:57] LABS: HEMATOCRIT 32.1 % (35.0-46.0); MEAN CELL VOLUME 84.4 FL (80.0-100.0); MEAN CORPUSCULAR HEMOGLOBIN 27.5 PG (27.0-34.0); MEAN CORPUSCULAR HGB CONC 32.6 % (32.0-36.0); PLATELET COUNT 385 TH/MM3 (150-450); RED CELL DISTRIBUTION WIDTH 15.8 % (11.6-17.2); REVIEW FLAG FINAL; WHITE BLOOD COUNT 8.5 TH/MM3 (4.0-11.0)
[2017-04-23] MEDS ORDERED: GABAPENTIN 100 MG CAP PO SCH (21:00)
--- NOTE | 2017-04-23 23:18 | RADRPT ---
EXAM DATE/TIME: 04/23/2017 19:47 [place] COMPARISON: US CAROTID ARTERIES, April 22, 2017, 23:19. INDICATIONS : Abnormal carotid ultrasound demonstrating apparent small dissection in the mid right common carotid a rtery. Patient has history of cerebrovascular accident with left upper and lower extremity weakness. IV CONTRAST: 80 cc Omnipaque 350 (iohexol) IV RADIATION DOSE: 28.33 CTDIvol (mGy) MEDICAL HISTORY : Hypertension. SURGICAL HISTORY : None. ENCOUNTER: Initial ACUITY: 1 day PAIN SCALE: 0/10 LOCATION: cranial Elevated flow velocities and ICA/CCA ratios have been found to correlate with increased degrees of vessel stenosis, calculated as percentage of diameter relative to a normal segment of distal ICA/CCA. TECHNIQUE: Volumetric scanning was performed using a multirow detector CT scanner. The data was post processed with a variety of visualization algorithms including full-volume maximum intensity projection, multip lanar sliding thin-slab reformation, curved-planar reformation, and surface-rendering techniques. Us ing automated exposure control and adjustment of the mA and/or kV according to patient size, radiatio n dose was kept as low as reasonably achievable to obtain optimal diagnostic quality images. DICOM f ormat image data is available electronically for review and comparison. FINDINGS: AORTIC ARCH: There is a three-vessel origin of the great vessels from the aorta. No evidence of ostial narrowing. RIGHT CAROTID: The common carotid artery is intact. The carotid bulb has a normal configuration without ulceration o r narrowing. The internal carotid artery lumen is smooth without stenosis. The external carotid cassie ry is intact. LEFT CAROTID: The common carotid artery is intact. The carotid bulb has a normal configuration without ulceration or narrowing. The internal carotid artery lumen is smooth without stenosis. The external carotid ar georgina is intact. VERTEBRALS: The vertebral arteries have a symmetric diameter. No stenotic lesions are seen. CONCLUSION: Negative exam The right common carotid artery is within normal limits with no evidence of a dissectio n. The finding on ultrasound appears to be artifactual. Darion Loving MD on April 23, 2017 at 23:07 Board Certified Radiologist. This report was verified electronically.
[2017-04-24 00:24] VITALS: BP 137/83; PULSE 77; RESP 17; TEMP 98.4; O2SAT 97
[2017-04-24] MEDS: SODIUM CHLOR 0.9% 1000 ML INJ 1,000 ML IV SCH (02:44)
[2017-04-24 04:14] VITALS: BP 140/83; PULSE 74; RESP 17; TEMP 98.5; O2SAT 97
[2017-04-24 05:32] LABS: PROTHROMBIN TIME - PATIENT 9.9 SEC (9.8-11.6)
[2017-04-24 05:46] LABS: BICARBONATE 25.5 MEQ/L (21.0-32.0); POTASSIUM 3.8 MEQ/L (3.5-5.1)
[2017-04-24] MEDS: INSULIN ASPART SUPPLEMENTAL SCALE SQ SCH (08:00)
[2017-04-24 08:14] VITALS: PULSE 75
[2017-04-24 08:16] VITALS: BP 134/80; PULSE 75; RESP 18; TEMP 98.5; O2SAT 98
[2017-04-24 08:24] VITALS: O2SAT 98
[2017-04-24] MEDS: SODIUM CHLORIDE 0.9% FLUSH 10 ML FLUSH IV FLUSH SCH (08:31)
[2017-04-24] MEDS: CYCLOBENZAPRINE HCL 10 MG TAB PO SCH (08:31)
[2017-04-24] MEDS: ASPIRIN 81 MG CHEW TAB PO SCH (08:31)
--- NOTE | 2017-04-24 08:58 | HHI.FPPN ---
Subjective Remarks Patient seen and examined this morning. Afebrile vital signs stable. Patient being followed by neurology and vascular surgery. Findings of the neck CTA appear to be artifactual no dissection noted. Neurology will follow the patient as an outpatient. She'll be discharged home today, she is looking forward to going home (Garcia Harrington MD, R3) Objective Vitals Vital Signs Date Time Temp Pulse Resp B/P (MAP) Pulse Ox O2 Delivery O2 Flow Rate FiO2 04/24/17 08:24 98 04/24/17 08:16 98.5 75 18 134/80 (98) 98 04/24/17 04:14 98.5 74 17 140/83 (102) 97 04/24/17 00:24 98.4 77 17 137/83 (101) 97 04/23/17 20:22 98.7 93 16 145/77 (99) 98 04/23/17 17:25 95 04/23/17 16:07 98.7 98 19 142/85 (104) 100 04/23/17 11:52 99 21 04/23/17 11:40 98.4 72 21 152/81 (104) 100 04/23/17 11:21 83 04/23/17 10:58 97.8 72 18 160/86 (110) 99 (Garcia Harrington MD, R3) Result Diagram: 04/23/17 1715 04/24/17 0433 Imaging Last Impressions Neck CTA 04/23/17 0000 Signed Impressions: Service Date/Time: Sunday, April 23, 2017 19:47 - CONCLUSION: Negative exam The right common carotid artery is within normal limits with no evidence of a dissection. The finding on ultrasound appears to be artifactual. Darion Loving MD Head Magnetic Resonance Angiography 04/23/17 0000 Signed Impressions: Service Date/Time: Sunday, April 23, 2017 08:13 - CONCLUSION: Normal MRA; no evidence of stenosis, luminal irregularity, aneurysm, AVM or vascular displacement. Louis Fernandez MD Cervical Spine MRI 04/23/17 0000 Signed Impressions: Service Date/Time: Sunday, April 23, 2017 08:13 - CONCLUSION: 1. Moderate-sized central disc protrusion at C5-6 abutting and mildly effacing the spinal cord. 2. Otherwise normal evaluation of the cervical spine. Louis Fernandez MD Brain MRI 04/23/17 0000 Signed Impressions: Service Date/Time: Sunday, April 23, 2017 08:13 - CONCLUSION: Normal examination. Louis Fernandez MD Head CT 04/22/171900 Signed Impressions: Service Date/Time: Saturday, April 22, 2017 19:24 - CONCLUSION: No acute disease. Timmy Grady MD Chest X-Ray 04/22/171900 Signed Impressions: Service Date/Time: Saturday, April 22, 2017 19:16 - CONCLUSION: No acute disease. Timmy Grady MD Cervical Spine CT 04/22/17 0000 Signed Impressions: Service Date/Time: Saturday, April 22, 2017 19:24 - CONCLUSION: 1. Reversal of the normal cervical lordosis. 2. No acute fracture or prevertebral soft tissue swelling. 3. No bony spinal canal stenosis. Timmy Grady MD Carotid Artery Ultrasound 04/22/17 0000 Signed Impressions: Service Date/Time: Saturday, April 22, 2017 23:19 - CONCLUSION: Apparent small dissection in the mid right common carotid artery. Color flow was unremarkable. There is no evidence of stenosis or elevated velocities. Darion Loving MD Objective Remarks GENERAL: Well-nourished, well-developed female patient lying on bed in no acute distress. SKIN: Warm and dry. No rash. HEENT: Atraumatic, normocephalic with EOMI. PERRLA. No rhinorrhea. Oropharynx clear. No LAD, JVD, or thyroid abnormality appreciated. CARDIOVASCULAR: Regular rate and rhythm without obvious murmurs, gallops, or rubs. 2+ pulses in all 4 extremities. RESPIRATORY: Clear to auscultation bilaterally with no CRW. No increased work of breathing. GASTROINTESTINAL: Abdomen soft, nontender with positive bowel sounds. No hepatosplenomegaly appreciated. MUSCULOSKELETAL: No cyanosis or edema. Strength grossly WNL. BACK: Nontender without obvious deformity. No CVA tenderness. NEURO/PSYCH: Afocal. Awake, alert, and oriented x3. Cranial nerves II through X intact. Extremities reflexes 2+ throughout 4 extremities. Gross strength and sensation intact without deficits and all 4 extremities. Patient tender to palpation along any part of her left side of the body. Normal speech and judgment. Medications and IVs Current Medications Medications (Trade) Dose Ordered Sig/Jairo Route Start Time Stop Time Status Last Admin (NS Flush) 2 ml BID IV FLUSH 04/23/17 09:00 (NS Flush) 2 ml UNSCH PRN IV FLUSH 04/22/17 22:15 Sodium Chloride 1,000 ml @ 70 mls/hr [id number] IV 04/22/17 22:08 04/24/17 02:44 (Aspirin Chew) 81 mg DAILY PO 04/23/17 09:00 04/24/17 08:31 (NovoLOG SUPPLEMENTAL SCALE) 1 ACHS SQ 04/23/17 08:00 (D50w (Vial) Inj) 50 ml UNSCH PRN IV PUSH 04/22/17 22:15 (Glucagon Inj) 1 mg UNSCH PRN OTHER 04/22/17 22:15 (Neurontin) 100 mg HS PO 04/23/17 21:00 04/23/17 21:00 (Flexeril) 7.5 mg TID PO 04/23/17 09:00 04/24/17 08:31 (Pill Splitter) 1 ea UNSCH PRN OTHER 04/23/17 07:30 (Garcia Harrington MD, R3) A/P Assessment and Plan Mrs. Otto is a 42 y/o F presenting to the ED for L sided paresthesia and pain admitted for evaluation of possible TIA Discharge Planning Discharge home today (Garcia Harrington MD, R3) Attending Attestation Patient seen and examined. Case reviewed and discussed with the resident team. Agree with plan of care as discussed with me and documented in the resident note. agree with follow up with her primary and neurology (Cassie Garza MD) Problem List: (1) TIA (transient ischemic attack) ICD Codes: G45.9 - Transient cerebral ischemic attack, unspecified Status: Acute Plan: Patient admitted to rule out TIA versus CVA - Imaging workup negative for stroke or TIA -NIH stroke scale protocol ordered -OT/PT consulted -Neurology consulted, appreciate recommendations - Will follow with neurology as an outpatient for EMG Medications: -Aspirin daily -Continue gabapentin 100 mg nightly -Continue Flexeril 3 times a day for muscle spasms (2) Carotid artery dissection ICD Codes: I77.71 - Dissection of carotid artery Status: Resolved Plan: With TIA workup carotid ultrasound showed a small dissection in the mid right common carotid artery. Currently patient is hemodynamically stable. CT of the neck showed no evidence of a dissection, ultrasound findings appear to be artifactual. Patient will need no more workup * Vascular surgery consulted, recommendations appreciated (3) Nutrition, metabolism, and development symptoms ICD Codes: R63.8 - Other symptoms and signs concerning food and fluid intake Status: Acute Plan: Diet: Nothing by mouth until swallow evaluation Fluids: Normal saline at 70 mL per hour Electrolytes: Within normal limits (4) Medical contraindication to deep vein thrombosis (DVT) prophylaxis ICD Codes: Z53.09 - Procedure and treatment not carried out because of other contraindication Status: Acute Plan: Medical DVT prophylaxis held until acute process ruled out SCD/TEDs (Garcia Harrington MD, R3) Garcia Harrington MD, R3 Apr 24, 2017 08:58 Cassie Garza MD Apr 25, 2017 12:26
--- NOTE | 2017-04-24 09:00 | HHI.DCPOC ---
Discharge Care Plan Diagnosis: (1) TIA (transient ischemic attack) (2) Neurological complaint Goals to Promote Your Health * To prevent worsening of your condition and complications * To maintain your health at the optimal level Directions to Meet Your Goals Take your medications as prescribed Follow your dietary instruction Follow activity as directed Keep your appointments as scheduled Take your immunizations and boosters as scheduled If your symptoms worsen call your PCP, if no PCP go to Urgent Care Center or Emergency Room Smoking is Dangerous to Your Health. Avoid second hand smoke Call the 24-hour hour crisis hotline for domestic abuse at Garcia Harrington MD, R3 Apr 24, 2017 09:00
--- NOTE | 2017-04-24 09:04 | HHI.PR ---
Review/Management Daily Summary 04/24 no change in status undetermined exact cause of sx doubt of c spine disk dx causing it outpt emg with me for c rad or cts Subjective Subjective Comments No acute events reported No headache No chest pain No dyspnea Active Medications Current Medications Medications (Trade) Dose Ordered Sig/Jairo Route Start Time Stop Time Status Last Admin (NS Flush) 2 ml BID IV FLUSH 04/23/17 09:00 (NS Flush) 2 ml UNSCH PRN IV FLUSH 04/22/17 22:15 Sodium Chloride 1,000 ml @ 70 mls/hr [id number] IV 04/22/17 22:08 04/24/17 02:44 (Aspirin Chew) 81 mg DAILY PO 04/23/17 09:00 04/24/17 08:31 (NovoLOG SUPPLEMENTAL SCALE) 1 ACHS SQ 04/23/17 08:00 (D50w (Vial) Inj) 50 ml UNSCH PRN IV PUSH 04/22/17 22:15 (Glucagon Inj) 1 mg UNSCH PRN OTHER 04/22/17 22:15 (Neurontin) 100 mg HS PO 04/23/17 21:00 04/23/17 21:00 (Flexeril) 7.5 mg TID PO 04/23/17 09:00 04/24/17 08:31 (Pill Splitter) 1 ea UNSCH PRN OTHER 04/23/17 07:30 Allergies Allergies Coded Allergies *MDRO Multi-Drug Resistant Organism (Verified Adverse Reaction, Unknown, ) Exam I&O / VS Vital Signs Date Time Temp Pulse Resp B/P (MAP) Pulse Ox O2 Delivery O2 Flow Rate FiO2 04/24/17 08:24 98 04/24/17 08:16 98.5 75 18 134/80 (98) 98 04/24/17 04:14 98.5 74 17 140/83 (102) 97 04/24/17 00:24 98.4 77 17 137/83 (101) 97 04/23/17 20:22 98.7 93 16 145/77 (99) 98 04/23/17 17:25 95 04/23/17 16:07 98.7 98 19 142/85 (104) 100 04/23/17 11:52 99 21 04/23/17 11:40 98.4 72 21 152/81 (104) 100 04/23/17 11:21 83 04/23/17 10:58 97.8 72 18 160/86 (110) 99 Objective Radiology Results Last 48 hours Impressions Neck CTA 04/23/17 Signed Impressions: Service Date/Time: Sunday, April 23, 2017 19:47 - CONCLUSION: Negative exam The right common carotid artery is within normal limits with no evidence of a dissection. The finding on ultrasound appears to be artifactual. Darion Loving MD Head Magnetic Resonance Angiography 04/23/17 Signed Impressions: Service Date/Time: Sunday, April 23, 2017 08:13 - CONCLUSION: Normal MRA; no evidence of stenosis, luminal irregularity, aneurysm, AVM or vascular displacement. Louis Fernandez MD Cervical Spine MRI 04/23/17 Signed Impressions: Service Date/Time: Sunday, April 23, 2017 08:13 - CONCLUSION: 1. Moderate-sized central disc protrusion at C5-6 abutting and mildly effacing the spinal cord. 2. Otherwise normal evaluation of the cervical spine. Louis Fernandez MD Brain MRI 04/23/17 Signed Impressions: Service Date/Time: Sunday, April 23, 2017 08:13 - CONCLUSION: Normal examination. Louis Fernandez MD Head CT 04/22/171900 Signed Impressions: Service Date/Time: Saturday, April 22, 2017 19:24 - CONCLUSION: No acute disease. Timmy Grady MD Chest X-Ray 04/22/171900 Signed Impressions: Service Date/Time: Saturday, April 22, 2017 19:16 - CONCLUSION: No acute disease. Timmy Grady MD Micro and Labs Laboratory Tests Test 04/23/17 17:15 04/24/17 04:33 White Blood Count 8.5 Red Blood Count 3.80 Hemoglobin 10.4 Hematocrit 32.1 Mean Corpuscular Volume 84.4 Mean Corpuscular Hemoglobin 27.5 Mean Corpuscular Hemoglobin Concent 32.6 Red Cell Distribution Width 15.8 Platelet Count 385 Mean Platelet Volume 6.7 Prothrombin Time 9.9 Prothromb Time International Ratio 1.0 Blood Urea Nitrogen 9 Creatinine 0.58 Random Glucose 82 Calcium Level 8.4 Sodium Level 139 Potassium Level 3.8 Chloride Level 107 Carbon Dioxide Level 25.5 Anion Gap 7 Estimat Glomerular Filtration Rate 138 Date/Time Source Procedure Growth Status 04/22/17 19:35 Urine Catheterized Urine Urine Culture - Preliminary IMMATURE GROWTH - REINCUBATE Resulted Emerita Jerez MD Apr 24, 2017 09:04
--- NOTE | 2017-04-24 09:44 | HHI.DS ---
Discharge Summary Admission Date Apr 22, 2017 at 21:13 Discharge Date: Apr 24, 2017 Admitting Diagnosis left arm and leg paresthesias (1) TIA (transient ischemic attack) Diagnosis: Principal Plan: Patient admitted to rule out TIA versus CVA - Imaging workup negative for stroke or TIA -NIH stroke scale protocol ordered -OT/PT consulted -Neurology consulted, appreciate recommendations - Will follow with neurology as an outpatient for EMG Medications: -Aspirin daily -Continue gabapentin 100 mg nightly -Continue Flexeril 3 times a day for muscle spasms ICD Codes: G45.9 - Transient cerebral ischemic attack, unspecified Status: Acute (2) Carotid artery dissection Diagnosis: Principal Plan: With TIA workup carotid ultrasound showed a small dissection in the mid right common carotid artery. Currently patient is hemodynamically stable. CT of the neck showed no evidence of a dissection, ultrasound findings appear to be artifactual. Patient will need no more workup * Vascular surgery consulted, recommendations appreciated ICD Codes: I77.71 - Dissection of carotid artery Status: Resolved (3) Nutrition, metabolism, and development symptoms Diagnosis: Secondary Plan: Diet: Nothing by mouth until swallow evaluation Fluids: Normal saline at 70 mL per hour Electrolytes: Within normal limits ICD Codes: R63.8 - Other symptoms and signs concerning food and fluid intake Status: Acute (4) Medical contraindication to deep vein thrombosis (DVT) prophylaxis Diagnosis: Secondary Plan: Medical DVT prophylaxis held until acute process ruled out SCD/TEDs ICD Codes: Z53.09 - Procedure and treatment not carried out because of other contraindication Status: Acute Consultants Neurology, vascular surgery Brief History Mrs. Otto is a 42 y/o F presenting to the ED for L sided paresthesia and pain. Patient states that approximately one month ago she fell onto her left shoulder while trying to catch her balance. She states that initially her left index finger started having paresthesia has now progressed to all 4 fingers except for her fifth digit chronically. Currently she is experiencing paresthesia throughout the entire left side of her body. She was given an unknown anti-inflammatory that "worked pretty good" over , however it made her "jittery" and was therefore losing sleep. She self discontinued the medication. Over the last weekend she started to feel unbalanced while walking and noticed a slight stutter when talking. She was seen at the [facility] acute care clinic today and was discharged home on a "couple of medications." However, she was unable to obtain these medications from pharmacy and was called by her physician to come immediately to the ED for evaluation. She describes the paresthesia as pins and needles throughout the entire left side of her body that is accompanied with intermittent "lightning/electricity strikes" that started at the left side of her head and shoot all the way down to her left foot. Otherwise she has no complaints and denies any headaches, blurry vision, shortness of breath, chest pain, NVD, abdominal pain, or calf tenderness. CBC/BMP: 04/23/17 1715 04/24/17 0433 Significant Findings Laboratory Tests Test 04/22/17 19:30 04/22/17 19:35 04/23/17 04:49 04/23/17 17:15 White Blood Count 11.4 TH/MM3 (4.0-11.0) Red Blood Count 3.89 MIL/MM3 (4.00-5.30) 3.50 MIL/MM3 (4.00-5.30) 3.80 MIL/MM3 (4.00-5.30) Hemoglobin 11.0 GM/DL (11.6-15.3) 9.8 GM/DL (11.6-15.3) 10.4 GM/DL (11.6-15.3) Hematocrit 33.2 % (35.0-46.0) 29.6 % (35.0-46.0) 32.1 % (35.0-46.0) Prothrombin Time 9.7 SEC (9.8-11.6) Total Protein 8.4 GM/DL (6.4-8.2) Troponin I LESS THAN 0.02 NG/ML Urine Occult Blood LARGE (NEG) Urine Leukocyte Esterase SMALL (NEG) Urine WBC 13 /hpf (0-5) Urine Mucus FEW /lpf (OCC) Calcium Level 8.2 MG/DL (8.5-10.1) Chloride Level 110 MEQ/L (98-107) Triglycerides Level 26 MG/DL (42-150) LDL Cholesterol 115 MG/DL (0-99) Mean Platelet Volume 6.7 FL (7.0-11.0) Test 04/24/17 04:33 Calcium Level 8.4 MG/DL (8.5-10.1) Imaging Last Impressions Neck CTA 04/23/17 0000 Signed Impressions: Service Date/Time: Sunday, April 23, 2017 19:47 - CONCLUSION: Negative exam The right common carotid artery is within normal limits with no evidence of a dissection. The finding on ultrasound appears to be artifactual. Darion Loving MD Head Magnetic Resonance Angiography 04/23/17 Signed Impressions: Service Date/Time: Sunday, April 23, 2017 08:13 - CONCLUSION: Normal MRA; no evidence of stenosis, luminal irregularity, aneurysm, AVM or vascular displacement. Louis Fernandez MD Cervical Spine MRI 04/23/17 Signed Impressions: Service Date/Time: Sunday, April 23, 2017 08:13 - CONCLUSION: 1. Moderate-sized central disc protrusion at C5-6 abutting and mildly effacing the spinal cord. 2. Otherwise normal evaluation of the cervical spine. Louis Fernandez MD Brain MRI 04/23/17 Signed Impressions: Service Date/Time: Sunday, April 23, 2017 08:13 - CONCLUSION: Normal examination. Louis Fernandez MD Head CT 04/22/171900 Signed Impressions: Service Date/Time: Saturday, April 22, 2017 19:24 - CONCLUSION: No acute disease. Timmy Grady MD Chest X-Ray 04/22/171900 Signed Impressions: Service Date/Time: Saturday, April 22, 2017 19:16 - CONCLUSION: No acute disease. Timmy Grady MD Cervical Spine CT 04/22/17 Signed Impressions: Service Date/Time: Saturday, April 22, 2017 19:24 - CONCLUSION: 1. Reversal of the normal cervical lordosis. 2. No acute fracture or prevertebral soft tissue swelling. 3. No bony spinal canal stenosis. Timmy Grady MD Carotid Artery Ultrasound 04/22/17 Signed Impressions: Service Date/Time: Saturday, April 22, 2017 23:19 - CONCLUSION: Apparent small dissection in the mid right common carotid artery. Color flow was unremarkable. There is no evidence of stenosis or elevated velocities. Darion Loving MD PE at Discharge GENERAL: Well-nourished, well-developed female patient lying on bed in no acute distress. SKIN: Warm and dry. No rash. HEENT: Atraumatic, normocephalic with EOMI. PERRLA. No rhinorrhea. Oropharynx clear. No LAD, JVD, or thyroid abnormality appreciated. CARDIOVASCULAR: Regular rate and rhythm without obvious murmurs, gallops, or rubs. 2+ pulses in all 4 extremities. RESPIRATORY: Clear to auscultation bilaterally with no CRW. No increased work of breathing. GASTROINTESTINAL: Abdomen soft, nontender with positive bowel sounds. No hepatosplenomegaly appreciated. MUSCULOSKELETAL: No cyanosis or edema. Strength grossly WNL. BACK: Nontender without obvious deformity. No CVA tenderness. NEURO/PSYCH: Afocal. Awake, alert, and oriented x3. Cranial nerves II through X intact. Extremities reflexes 2+ throughout 4 extremities. Gross strength and sensation intact without deficits and all 4 extremities. Patient tender to palpation along any part of her left side of the body. Normal speech and judgment. Hospital Course She was admitted on 04/22/17 for TIA workup. All imaging was negative. Neurology is following. She was found to have a dissection of her carotid on Ultrasound. CTA of the neck was negative for dissection and previous imaging believed to be artifact. She was discharged on 04/24/17 with follow up with neurology for EMG of her left arm as an outpatient. Pt Condition on Discharge: Stable Discharge Disposition: Discharge Home Discharge Instructions DIET: Follow Instructions for: As Tolerated, No Restrictions Speech Therapy-Diet Recommends: Regular Activities you can perform: Regular-No Restrictions Follow up Referrals: Neurology - 1 Week with Emerita Jerez MD PCP Follow-up - 1 Week with Cris Yu MD, R3 Continued Medications: Cyclobenzaprine (Flexeril) 7.5 Mg Tab 7.5 MG PO TID for Muscle Spasm, #20 TAB 0 Refills Gabapentin (Gabapentin) 100 Mg Cap 100 MG PO HS, #45 CAP 0 Refills Meclizine (Meclizine) 25 Mg Tab 25 MG PO TID PRN for VERTIGO, #45 TAB 0 Refills Garcia Harrington MD, R3 Apr 24, 2017 09:44
[2017-04-29] MEDS ORDERED: DULO1CAP2 PO (16:42)
== END 2017-04-24 10:51 | disposition home or self-care (01) ==
LOC: NEPE 18:35 → NEDA 21:13 → NEPFCDU 04-23 01:22
PROVIDERS: ADMIT Family Medicine; ATTEND Family Medicine
DX: G45.9 Transient cerebral ischemic attack, unspecified (principal); R63.8 Other symptoms and signs concerning food and fluid intake; I10 Essential (primary) hypertension; G43.909 Migraine, unspecified, not intractable, without status migrainosus; R31.9 Hematuria, unspecified; I77.71 Dissection of carotid artery; M50.222 Other cervical disc displacement at C5-C6 level; F12.90 Cannabis use, unspecified, uncomplicated
CPT/HCPCS: 70450; 70498; 70544; 70551; 71010; 72125; 72141; 80048; 80053; 80061; 81001; 82550; 82948; 83036; 84484; 84702; 85025; 85027; 85610; 85730; 87086; 92610; 93005; 93306; 93880; 94150; 96360; 96361; 97162; 97165; 99285; G0378; G8987; G8988; G8989; G8996; G8997; G8998; J7030; Q9967